=== PATIENT | male | born 1965 | race Hispanic/Latino ===

== ENCOUNTER 2018-05-13 13:59 | Emergency (ER) | payer OTHER ==
--- NOTE | 2018-05-13 14:26 | C.PDOC ---
History Of Present Illness Mr. Marr is a 52 year old male with no significant PMHx who presents with complaints of Right wrist pain x 1 week post falling forward down the stairs on an outstretched hand. Patient admits to swelling at the time of injury which has been decreasing with ice. He rates the pain a 4/10 and describes it as sharp/sore. Pain is exacerbated with flexion of the wrist. Pain is relieved with Ice. He has only use aspirin to treat. ROS: POSITIVES: Right Wrist Pain NEGATIVE: Fever, chills, headache, chest pain, SOB, abdominal pain, changes in bowel habits, urinary symptoms, motor/sensory loss PMHx: Denies PSHx: No Allergies: Shellfish SocialHx: 3 cigarette a day smoker, 20 year smoking history. Denies EtoH or illicit drug use. 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 Meds: Denies Time Seen by Provider: 05/13/18 14:26 History Per: Patient Past Medical History Reviewed: Nursing Documentation, Vital Signs Family History: States: Diabetes Review Of Systems Except As Marked, All Systems Reviewed And Found Negative. (As per HPI) Physical Exam - Physical Exam Appears: Well, Non-toxic, No Acute Distress Skin: Normal Color, Warm, Dry Head: Atraumatic, Normacephalic Eye(s): bilateral: EOMI Lips: Normal Appearing Cardiovascular: Rhythm Regular, No Edema Respiratory: Normal Breath Sounds, No Accessory Muscle Use, No Wheezing Gastrointestinal/Abdominal: Normal Exam, Bowel Sounds, Soft, No Tenderness Extremity: Tenderness (Tenderness at Anterior right distal ulna. Restricted in Wrist Extenstion, Pain in all planes of motion especially Wrist Flextion. ) Extremity: Left: Normal Color And Temperature (Right Cool distal Upper Ext. as compared to Left. ) Neurological/Psych: Oriented x3, Normal Speech, Normal Cognition, Normal Motor, Normal Sensation Medical Decision Making Medical Decision Making: Right Wrist Pain Mgmt: Right Wrist X-ray. patient stated he does not need any medication for pain. Dispo: Patient to follow up with PCP and Ortho. Disposition Counseled Patient/Family Regarding: Studies Performed, Diagnosis, Need For Followup, Rx Given - Disposition Referrals: Rodolfo Montague MD [Staff Provider] - [facility] [Outside] Disposition: HOME/ ROUTINE Disposition Time: 16:07 Condition: GOOD Prescriptions: Ibuprofen [Motrin Tab] 600 mg PO Q6H #21 tab Instructions: Wrist Sprain (DC), Common Wrist Injuries (DC) Forms: [employer] ([place]), Work Excuse - Clinical Impression Clinical Impression: Osteoarthritis of wrist
[2018-05-13 14:29] VITALS: BP 145/80; PULSE 70; RESP 18; TEMP 98; O2SAT 99
--- NOTE | 2018-05-13 15:54 | RAD ---
Date of service: 05/13/2018 PROCEDURE: Right Wrist Radiographs. HISTORY: Right Wrist Pain COMPARISON: None. FINDINGS: BONES: Bone alignment and mineralization are normal. There is no acute displaced fracture or bone destruction. JOINTS: Moderate degenerative osteoarthrosis in the scaphotrapezium joint with marginal osteophytes reduced joint space and subarticular cystic changes. The remaining joint spaces are preserved. SOFT TISSUES: Normal. OTHER FINDINGS: None. 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
== END 2018-05-13 16:22 | disposition home or self-care (01) ==
LOC: C.ER 13:59
DX: M19.031 Primary osteoarthritis, right wrist (principal)